=== PATIENT | male | born 1980 | race African-American/Black ===

== ENCOUNTER 2021-03-18 22:24 | Emergency (ER) | payer OTHER, SELFPAY ==
[2021-03-18 22:30] VITALS: BP 148/82; PULSE 100; RESP 20; TEMP 37.1; O2SAT 98
--- NOTE | 2021-03-19 00:31 | PC.NURSE ---
EDMD presented to bedside.
--- NOTE | 2021-03-19 00:33 | PC.NURSE ---
Pt presents to ED with complaint of puss, swelling and itching of his scalp after dying his hair yesterday. Pt states he has never had an allergic reaction to hair dye and has also never used that brand of dye. Pt states his scalp is burning and itching. Denies pain, nausea, emesis, fever, chills, chest pain and sob. pt resting comfortably on cart in its lowest position with call button and personal items within reach. Vitals are stable and pt in no obvious distress at this time.
--- NOTE | 2021-03-19 00:35 | ED.ALLEREA ---
HPI - Allergic Reaction General Chief complaint: Skin/Abscess/Foreign Body Stated complaint: allergic reaction to hair dye Time Seen by Provider: 03/19/21 00:18 Source: patient Mode of arrival: ambulatory Limitations: no limitations History of Present Illness HPI narrative: Patient is a 42-year-old male complaining of itchy rash on his head after getting his hair dyed yesterday. Patient denies any facial, lip, tongue or throat swelling. Denies any shortness of breath. Related Data Home Medications Medication Instructions Recorded Confirmed amlodipine 09/07/19 lisinopril 09/07/19 Allergies Allergy/AdvReac Type Severity Reaction Status Date / Time No Known Allergies Allergy Verified 03/18/21 22:33 Review of Systems Review of Systems: All systems reviewed & are unremarkable except as noted in HPI and below Constitutional: Constitutional: Denies body ache(s), Denies chills, Denies excessive sweating, Denies fatigue, Denies fever(s), Denies headache(s), Denies lethargy, Denies malaise, Denies weakness and Denies weight loss Eyes: Eyes: Denies blurry vision, Denies change in vision and Denies loss of vision ENT: Denies dizziness, Denies ear discharge, Denies headache(s), Denies lip swelling, Denies epistaxis, Denies nasal congestion, Denies neck pain, Denies throat swelling and Denies tongue swelling Cardiovascular: Cardiovascular: Denies chest pain, Denies chest pain at rest, Denies chest pain with activity, Denies diaphoresis, Denies rapid heart rate, Denies edema, Denies irregular heart rhythm, Denies lightheadedness, Denies palpitations, Denies dyspnea and Denies dyspnea on exertion Respiratory: Respiratory: Denies chest congestion, Denies cough, Denies hemoptysis, Denies dyspnea and Denies dyspnea on exertion Gastrointestinal: Gastrointestinal: Denies abdominal pain, Denies melena, Denies hematochezia, Denies diarrhea, Denies nausea, Denies vomiting and Denies hematemesis Musculoskeletal: Musculoskeletal: Denies abnormal gait, Denies deformity, Denies joint swelling, Denies limited range of motion, Denies neck pain and Denies numbness Neurologic: Denies Abnormal speech present, Denies abnormal gait, Denies confusion, Denies dizziness, Denies headache(s), Denies focal weakness, Denies loss of vision, Denies numbness, Denies Other visual disturbances, Denies Sensory deficit (Neuro) and Denies weakness Psychiatric: Psychiatric: Denies confusion, Denies depression, Denies auditory hallucinations, Denies homicidal ideation and Denies suicidal ideation Endocrine: Endocrine: Denies cold intolerance, Denies excessive sweating, Denies fatigue, Denies heat intolerance and Denies palpitations Hematologic/Lymphatic: Hematologic/Lymphatic: Denies easy bleeding and Denies easy bruising Allergic/Immunologic: Allergic/Immunologic: Denies lip swelling, Denies throat swelling and Denies tongue swelling PMFSH Surgical History Surgical History History of hip replacement Social History Social History Smoking status: Never smoker Alcohol intake: current Substance use: never Comments Past medical history: None Social history: Non-smoker, occasional EtOH use, no drug use Exam Const: General: cooperative, comfortable, no acute distress, well developed, alert and awake; No confusion Orientation/consciousness: oriented to person, oriented to place, oriented to time, patient oriented x3 and No confusion Limitations: no limitations HENMT: Head: atraumatic Ears: hearing grossly normal bilaterally, TM normal on the right and TM normal on the left General nose exam: Normal external nose present, Normal nares present and No nasal discharge present Face and sinus: normal facial exam Mouth: Yes Normal oral and palatal mucosa present, Yes lip normal, Yes tongue normal and Yes oropharynx normal Throat: posterior oropharynx
[2021-03-19 00:36] VITALS: BP 136/87; PULSE 94; RESP 20; TEMP 37; O2SAT 100
[2021-03-19] MEDS: FAMOTIDINE 20 MG TABLET 40 MG PO (00:40)
[2021-03-19] MEDS: predniSONE 20 MG TABLET 60 MG PO (00:40)
[2021-03-19 00:44] VITALS: BP 136/87; PULSE 92; RESP 18; TEMP 37; O2SAT 100
[2021-03-19 00:45] VITALS: BP 127/82; PULSE 95; RESP 18; TEMP 37; O2SAT 98
== END 2021-03-19 00:48 | disposition home or self-care (01) ==
PROVIDERS: Emergency Provider Emergency Medicine
DX: L23.4 Allergic contact dermatitis due to dyes (principal)
CPT/HCPCS: 99283; A9270; J7512

== ENCOUNTER 2021-03-25 12:57 | Emergency (ER) | payer OTHER, SELFPAY ==
[2021-03-25 13:04] VITALS: BP 146/85; PULSE 92; RESP 20; TEMP 36.6; O2SAT 100
--- NOTE | 2021-03-25 13:13 | ED.SKABFB ---
HPI - Skin/Abscess/Foreign Bdy General Chief complaint: Skin/Abscess/Foreign Body Stated complaint: Allergic reaction Time Seen by Provider: 03/25/21 13:13 Source: patient and RN notes reviewed Mode of arrival: ambulatory Limitations: no limitations History of Present Illness HPI narrative: 41-year-old male presents to the [facility] with complaints of a rash to his scalp and side of face. States he developed a rash 4 days ago when he used some hair dye. States it is really itchy. Denies any treatment prior to arrival. States it remains very itchy. Related Data Home Medications Medication Instructions Recorded Confirmed amlodipine 1 mg PO DAILY 03/25/21 03/25/21 aspirin 1 mg PO DAILY 03/25/21 03/25/21 hydrochlorothiazide 1 mg PO DAILY 03/25/21 03/25/21 lisinopril 1 mg PO DAILY 03/25/21 03/25/21 Allergies Allergy/AdvReac Type Severity Reaction Status Date / Time No Known Allergies Allergy Verified 03/25/21 13:11 Review of Systems Review of Systems: All systems reviewed & are unremarkable except as noted in HPI and below Constitutional: Constitutional: Reports no additional constitutional complaints, Denies chills and Denies fever(s) Eyes: Eyes: Reports no additional eye complaints and Denies change in vision ENT: Reports system reviewed and no additional complaints, except as documented Cardiovascular: Cardiovascular: Reports no additional cardiovascular complaints, Denies chest pain and Denies radiating jaw, neck or arm pain Respiratory: Respiratory: Reports no additional respiratory complaints, Denies cough and Denies dyspnea Musculoskeletal: Musculoskeletal: Reports no additional musculoskeletal complaints Integumentary/Breasts: Skin/Breast: Reports as per HPI and Reports rash (Red raised itchy rash to the scalp and side of face) Neurologic: Reports system reviewed and no additional complaints, except as documented Psychiatric: Psychiatric: Reports no additional psychiatric complaints Allergic/Immunologic: Allergic/Immunologic: Reports as per HPI, Denies lip swelling, Denies throat swelling, Denies tongue swelling and Denies wheezing PMFSH Surgical History Surgical History History of hip replacement Social History Social History Smoking status: Never smoker Alcohol intake: current Substance use: never Gender identity (if verbalized by the patient): Male Comments At the time of my signature, I reviewed and agree with the nursing past medical, surgical, social, and family history. There is no relevant family history pertinent to the patient complaint. Exam Const: General: healthy appearing, no acute distress and alert Nutritional Appearance: obese Orientation/consciousness: patient oriented x3 HENMT: Head: normal to inspection Ears: external ears normal, TM's normal bilaterally and EAC's normal Eyes: Conjunctivae: conjunctivae normal Pupils: Equal, round and reactive pupils present Neck: Neck: normal visual inspection, no lymphadenopathy and no meningeal signs Chest: Chest palpation & inspection: normal inspection of the chest Resp: Effort & Inspection: normal respiratory effort and no use of accessory muscles Auscultation: clear to auscultation bilaterally, no crackles, no rales, no rhonchi and no wheezes Cardio: Rate: regular rate Rhythm: regular rhythm Back/Spine/Pelvis: Back: no CVA tenderness Skin: Rashes: rashes noted (Scalp and side of face) Neuro: General: patient oriented x3, moves all extremities, no meningeal signs and no focal motor deficits Speech: normal speech Gait exam (Neuro): Normal gait present Extrem: General: normal to inspection and no pedal edema Psych: Appearance: grossly normal Mental Status: mental status grossly normal Affect: normal affect Attitude: cooperative Thought content: Yes Normal thought content present Course Course Cindy
== END 2021-03-25 13:24 | disposition home or self-care (01) ==
PROVIDERS: Emergency Provider Nurse Practitioner; PCP Family Medicine
DX: L25.9 Unspecified contact dermatitis, unspecified cause (principal); I10 Essential (primary) hypertension
CPT/HCPCS: 99213; G0463

== ENCOUNTER 2022-01-20 06:55 | Emergency (ER) | payer OTHER, SELFPAY ==
[2022-01-20 07:03] VITALS: BP 153/90; PULSE 84; RESP 14; TEMP 36.4; O2SAT 100
--- NOTE | 2022-01-20 07:37 | ED.GENADULT ---
HPI - General Adult General Chief complaint: Skin/Abscess/Foreign Body Stated complaint: ALL RX TO HAIR DYE Time Seen by Provider: 01/20/22 07:22 Source: patient Mode of arrival: ambulatory Limitations: no limitations History of Present Illness HPI narrative: 41-year-old male presenting to the emergency department for evaluation of a suspected allergic reaction to a new hair dye that he used yesterday. Patient states that he dyed his hair yesterday morning and when he woke up this morning he noticed he had scalp swelling and right ear swelling. Patient denies any difficulty breathing swallowing or any facial swelling. Patient has never had this allergic reaction before. Patient denies any other complaints at this time. Related Data Home Medications Medication Instructions Recorded Confirmed amlodipine 1 mg PO DAILY 03/25/21 03/25/21 hydrochlorothiazide 1 mg PO DAILY 03/25/21 03/25/21 lisinopril 1 mg PO DAILY 03/25/21 03/25/21 Allergies Allergy/AdvReac Type Severity Reaction Status Date / Time No Known Allergies Allergy Verified 01/20/22 07:07 Review of Systems Review of Systems: CONSTITUTIONAL: Denies fever, chills, or sweats. EYES: Denies visual changes, redness, or discharge. ENT: Denies rhinorrhea, congestion, sore throat, or otalgia. CARDIOVASCULAR: Denies chest pain, palpitations, or edema. RESPIRATORY: Denies cough or dyspnea. GASTROINTESTINAL: Denies abdominal pain, nausea, vomiting, or diarrhea. GENITOURINARY: Denies dysuria or hematuria. SKIN: See HPI MUSCULOSKELETAL: Denies back pain, joint pain, or myalgia. [facility] Surgical History Surgical History History of hip replacement Social History Social History Smoking status: Never smoker Alcohol intake: current Substance use: never Gender identity (if verbalized by the patient): Male Exam Narrative: APPEARANCE: Well appearing, no pain, no distress, well-nourished. HEAD: normocephalic, atraumatic. EYES: PERRLA/EOMI, conjunctivae clear. NOSE: Normal no drainage EARS: External swelling of the right ear. THROAT: Pharynx clear, no exudate. NECK: Supple. No adenopathy, no masses. RESPIRATORY: Airway patent, respirations nonlabored. Clear to auscultation bilaterally, no rales, rhonchi, wheezing. CARDIOVASCULAR: Regular rate and rhythm without murmurs rubs or gallops. SKIN: Mild scalp and right ear edema. Some scaling of the scalp PSYCHIATRIC: Normal affect/mood. Course Course Emergency Course: Patient is being treated with Benadryl and prednisone in the emergency department and will be discharged with prednisone. Vital Signs Vital signs: Vital Signs Temperature 97.5 F L 01/20/22 07:03 Pulse Rate 84 01/20/22 07:03 Respiratory Rate 14 01/20/22 07:03 Blood Pressure 153/90 H 01/20/22 07:03 Pulse Oximetry 100 01/20/22 07:03 Temperature 97.5 F L 01/20/22 07:03 Pulse Rate 95 01/20/22 08:21 Respiratory Rate 17 01/20/22 08:21 Blood Pressure 144/102 H 01/20/22 08:21 Pulse Oximetry 100 01/20/22 08:21 Medical Decision Making Vital Signs Vital Signs: Vital Signs Temperature 97.5 F L 01/20/22 07:03 Pulse Rate 84 01/20/22 07:03 Respiratory Rate 14 01/20/22 07:03 Blood Pressure 153/90 H 01/20/22 07:03 Pulse Oximetry 100 01/20/22 07:03 Temperature 97.5 F L 01/20/22 07:03 Pulse Rate 95 01/20/22 08:21 Respiratory Rate 17 01/20/22 08:21 Blood Pressure 144/102 H 01/20/22 08:21 Pulse Oximetry 100 01/20/22 08:21 Discharge Plan Discharge Clinical Impression: Contact dermatitis Qualifiers: Contact dermatitis type: unspecified Contact dermatitis trigger: dye Qualified Code(s): L25.2 - Unspecified contact dermatitis due to dyes Patient Disposition: Home, Self-Care Condition: Stable Instructions: Antibiotic Form, Contact Dermatitis (ED) Additional Instructions: Predn
[2022-01-20] MEDS: predniSONE 20 MG TABLET 40 MG PO (07:46)
[2022-01-20] MEDS: diphenhydrAMINE HCl CAP 25 MG CAPSULE PO (07:46)
[2022-01-20 08:21] VITALS: BP 144/102; PULSE 95; RESP 17; O2SAT 100
== END 2022-01-20 08:20 | disposition home or self-care (01) ==
LOC: ANHED 07:59
PROVIDERS: Emergency Provider Emergency Medicine; PCP Family Medicine
DX: L25.2 Unspecified contact dermatitis due to dyes (principal); Z96.649 Presence of unspecified artificial hip joint
CPT/HCPCS: 99283; A9270; J7512

== ENCOUNTER 2022-02-02 07:36 | Emergency (ER) | payer OTHER, SELFPAY ==
[2022-02-02 07:40] VITALS: BP 143/89; PULSE 92; RESP 16; TEMP 36.6; O2SAT 100
--- NOTE | 2022-02-02 09:03 | PC.NURSE ---
EDP at bedside to assess patient.
--- NOTE | 2022-02-02 09:03 | ED.SKABFB ---
HPI - Skin/Abscess/Foreign Bdy General Chief complaint: Skin/Abscess/Foreign Body Stated complaint: contact dermatitis Time Seen by Provider: 02/02/22 08:53 History of Present Illness HPI narrative: Patient is a 41-year-old male here for evaluation of an pruritic rash on his bilateral hands x 2 weeks. Patient states he was seen here for the same on his scalp about 2 weeks ago, and was treated for contact dermatitis with a short course of prednisone and Zyrtec. He has been taking Zyrtec and finished prednisone about a week ago, but he states the rash on his hands came back afterwards. He denies any trouble breathing, cough, facial swelling. States he frequently has allergic reactions to a hair dye, and he used a new hair dye about 2 weeks ago. Related Data Home Medications Medication Instructions Recorded Confirmed amlodipine 1 mg PO DAILY 03/25/21 03/25/21 hydrochlorothiazide 1 mg PO DAILY 03/25/21 03/25/21 lisinopril 1 mg PO DAILY 03/25/21 03/25/21 Allergies Allergy/AdvReac Type Severity Reaction Status Date / Time No Known Allergies Allergy Verified 01/20/22 07:07 Review of Systems Review of Systems: CONSTITUTIONAL: Denies fever, chills, or sweats. EYES: Denies visual changes, redness, or discharge. ENT: Denies rhinorrhea, congestion, sore throat, or otalgia. CARDIOVASCULAR: Denies chest pain, palpitations, or edema. RESPIRATORY: Denies cough or dyspnea. GASTROINTESTINAL: Denies abdominal pain, nausea, vomiting, or diarrhea. GENITOURINARY: Denies dysuria or hematuria. SKIN: Reports itching. MUSCULOSKELETAL: Denies back pain, joint pain, or myalgia. NEUROLOGIC: Denies headache, numbness, or weakness. PSYCHIATRIC: Denies anxiety or depression. All systems reviewed & are unremarkable except as noted in HPI and below PMFSH Surgical History Surgical History History of hip replacement Social History Social History Smoking status: Never smoker Alcohol intake: current Substance use: never Gender identity (if verbalized by the patient): Male Exam Narrative: Gen: Alert, oriented, no acute distress Eyes: EOMI, no icterus Pulm: Lungs clear to auscultation. Respirations even and unlabored, symmetric thorax expansion, no audible stridor or visible cyanosis CV: Regular rate, no murmurs GI: No distension, no voluntary/involuntary guarding Neuro: AOx4, moves all extremities without apparent difficulty or weakness, follows commands Skin: Patient has several papules to bilateral hands with underlying excoriation. No jaundice, no visible bruising Psych: Normal mood/affect, insight/judgement good, adequate fund of knowledge, recent/remote memory intact Course Vital Signs Vital signs: Vital Signs Temperature 97.8 F 02/02/22 07:40 Pulse Rate 92 02/02/22 07:40 Respiratory Rate 16 02/02/22 07:40 Blood Pressure 143/89 H 02/02/22 07:40 Pulse Oximetry 100 02/02/22 07:40 Temperature 97.8 F 02/02/22 07:40 Pulse Rate 92 02/02/22 07:40 Respiratory Rate 16 02/02/22 07:40 Blood Pressure 143/89 H 02/02/22 07:40 Pulse Oximetry 100 02/02/22 07:40 MDM - Skin/Abscess/Foreign Bdy MDM Narrative Medical decision making narrative: 41-year-old male with 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 Previously improved with short course of steroids. Patient nontoxic-appearing with normal vital signs and no difficulty breathing. History and exam findings not consistent with dangerous etiologies of rash such as SJS/TEN, or secondary dangerous causes such as petechial rashes from thrombocytopenia or rickettsial infections. Rash does not appear urticarial with no signs of anaphylaxis either. Feel outpatient management is appropriate with short course of steroids, will switch to hydroxyzine instead of Benadryl for itching take at nighttime.
== END 2022-02-02 09:19 | disposition home or self-care (01) ==
PROVIDERS: Emergency Provider Emergency Medicine; PCP Family Medicine
DX: L25.2 Unspecified contact dermatitis due to dyes (principal); Z96.649 Presence of unspecified artificial hip joint
CPT/HCPCS: 99283

== ENCOUNTER 2023-01-29 07:23 | Emergency (ER) | payer OTHER, SELFPAY ==
--- NOTE | ~2023-01-29 | XR_ITS ---
EXAMINATION: XR chest 2V 01/29/2023 08:13 INDICATION: Cough and congestion PROCEDURE: 2 view chest COMPARISON: No prior studies for comparison. FINDINGS: The lungs are clear. The cardiomediastinal silhouette is within normal limits. There are no pleural effusions. There is no pneumothorax suspected. There is a calcified granuloma left lower thorax. No acute osseous abnormality. IMPRESSION: 1: NO ACUTE CARDIOPULMONARY DISEASE. Reviewed, dictated and finalized at location L.
[2023-01-29 07:40] VITALS: BP 150/103; PULSE 98; RESP 18; TEMP 36.8; O2SAT 99
[2023-01-29 07:50] VITALS: PULSE 104; RESP 20
[2023-01-29] MEDS: IPRATROPIUM BR 0.02% INH SOLN 0.5 MG/2.5 ML VIAL INHALATION (07:50)
[2023-01-29] MEDS: LEVALBUTEROL NEB 1.25 MG/3 ML INHALATION (07:50)
[2023-01-29 08:03] VITALS: PULSE 98; RESP 20
[2023-01-29 08:51] VITALS: PULSE 97; RESP 20
[2023-01-29] MEDS: predniSONE 20 MG TABLET 60 MG PO (09:25)
[2023-01-29 10:02] VITALS: PULSE 101; RESP 20
--- NOTE | 2023-01-29 10:40 | ED.GENADULT ---
HPI - General Adult General Chief complaint: Upper Respiratory Infection Stated complaint: congestion Time Seen by Provider: 01/29/23 07:34 History of Present Illness HPI narrative: Patient is a 42-year-old male who presents ER with cough and chest congestion. Reports he has had sinus congestion with sore throat and cough for the last week but has noticed increased congestion in his chest for the last couple days. No chest pain or chest pressure. Cough is productive. No fevers or chills or sweats. No known sick contacts. Related Data Home Medications Medication Instructions Recorded Confirmed amlodipine 10 mg tablet 1 mg PO DAILY 03/25/21 03/25/21 hydrochlorothiazide 25 mg tablet 1 mg PO DAILY 03/25/21 03/25/21 lisinopril 40 mg tablet 1 mg PO DAILY 03/25/21 03/25/21 Allergies Allergy/AdvReac Type Severity Reaction Status Date / Time No Known Allergies Allergy Verified 01/20/22 07:07 Review of Systems Review of Systems: All systems reviewed & are unremarkable except as noted in HPI and below Constitutional: Constitutional: Denies chills and Denies fever(s) ENT: Reports nasal congestion and Reports sore throat Cardiovascular: Cardiovascular: Denies chest pain and Denies radiating jaw, neck or arm pain Respiratory: Respiratory: Reports chest congestion, Reports cough, Reports dyspnea and Reports wheezing Gastrointestinal: Gastrointestinal: Denies nausea and Denies vomiting PMF Past Medical History Medical History (Updated 01/29/23 @ 18:38 by Pawel Hills MD) Healthy adult male Surgical History Surgical History History of hip replacement Social History Social History Smoking status: Never smoker Alcohol intake: current Substance use: never Living arrangements: with family Gender identity (if verbalized by the patient): Male Exam Narrative: GENERAL: Well-appearing, well-nourished, and in no acute distress. HEAD: Normocephalic, atraumatic. ENT: Mucous membranes moist. CHEST: Coarse Rales and wheezing bilaterally. No respiratory distress. HEART: Regular rate and rhythm. Normal peripheral pulses. ABDOMEN: Soft, nontender, nondistended. EXTREMITIES: Normal range of motion. No edema. SKIN: Warm, dry, no rash. NEURO: Alert and oriented x3. PSYCH: Normal mood and affect. Course Course Emergency Course: Patient resting comfortably. Informed of results. Lungs markedly improved after hour-long nebulizer treatment. Will be started on daily prednisone. Discharge home Vital Signs Vital signs: Vital Signs Temperature 98.2 F 01/29/23 07:40 Pulse Rate 98 01/29/23 07:40 Respiratory Rate 18 01/29/23 07:40 Blood Pressure 150/103 H 01/29/23 07:40 Pulse Oximetry 99 01/29/23 07:40 Oxygen Delivery Room Air 01/29/23 07:40 Temperature 98.2 F 01/29/23 07:40 Pulse Rate 92 01/29/23 11:08 Respiratory Rate 18 01/29/23 11:08 Blood Pressure 156/110 H 01/29/23 11:08 Pulse Oximetry 98 01/29/23 11:08 Oxygen Delivery Room Air 01/29/23 07:40 Medical Decision Making Vital Signs Vital Signs: Vital Signs Temperature 98.2 F 01/29/23 07:40 Pulse Rate 98 01/29/23 07:40 Respiratory Rate 18 01/29/23 07:40 Blood Pressure 150/103 H 01/29/23 07:40 Pulse Oximetry 99 01/29/23 07:40 Oxygen Delivery Room Air 01/29/23 07:40 Temperature 98.2 F 01/29/23 07:40 Pulse Rate 92 01/29/23 11:08 Respiratory Rate 18 01/29/23 11:08 Blood Pressure 156/110 H 01/29/23 11:08 Pulse Oximetry 98 01/29/23 11:08 Oxygen Delivery Room Air 01/29/23 07:40 Imaging Data Radiologist's impression: ITS Impressions Chest X-Ray 01/29/23 08:13 IMPRESSION: 1: NO ACUTE CARDIOPULMONARY DISEASE. Discharge Plan Discharge Clinical Impression: Bronchitis Patient Disposition: Home, Self-Car
[2023-01-29 11:08] VITALS: BP 156/110; PULSE 92; RESP 18; O2SAT 98
== END 2023-01-29 11:08 | disposition home or self-care (01) ==
PROVIDERS: Emergency Provider Emergency Medicine; PCP Family Medicine
DX: J40 Bronchitis, not specified as acute or chronic (principal)
CPT/HCPCS: 71046; 94640; 99284; J7512

== ENCOUNTER 2023-05-29 12:29 | Emergency (ER) | payer OTHER, SELFPAY ==
[2023-05-29 12:49] VITALS: BP 132/87; PULSE 90; RESP 16; TEMP 36.9; O2SAT 99
--- NOTE | 2023-05-29 13:02 | ED.EAR ---
HPI - Ear Problem General Chief complaint: Ear Stated complaint: right ear pain Time Seen by Provider: 05/29/23 13:02 Source: patient Mode of arrival: ambulatory Limitations: no limitations History of Present Illness HPI Narrative: 43 yo M presents with c/o R ear pain, ringing to R ear and decreased hearing starting last night. afebrile. No other symptoms. All systems reviewed and negative except as noted above. Related Data Home Medications Medication Instructions Recorded Confirmed amlodipine 10 mg tablet 1 mg PO DAILY 03/25/21 05/29/23 hydrochlorothiazide 25 mg tablet 25 mg PO DAILY 03/25/21 05/29/23 lisinopril 40 mg tablet 40 mg PO DAILY 03/25/21 05/29/23 liraglutide 0.6 mg/0.1 mL (18 mg/3 See Rx Instructions .Route .COMPLEX 05/29/23 05/29/23 mL) subcutaneous pen injector (Victoza 3-Kit) meloxicam 7.5 mg tablet 7.5 mg PO DAILY 05/29/23 05/29/23 Allergies Allergy/AdvReac Type Severity Reaction Status Date / Time No Known Allergies Allergy Verified 05/29/23 12:35 Review of Systems Review of Systems: CONSTITUTIONAL: Denies fever, chills, or sweats. EYES: Denies visual changes, redness, or discharge. ENT: Denies rhinorrhea, congestion, sore throat . Reports right ear pain. CARDIOVASCULAR: Denies chest pain, palpitations, or edema. RESPIRATORY: Denies cough or dyspnea. GASTROINTESTINAL: Denies abdominal pain, nausea, vomiting, or diarrhea. GENITOURINARY: Denies dysuria or hematuria. SKIN: Denies rash or itching. MUSCULOSKELETAL: Denies back pain, joint pain, or myalgia. NEUROLOGIC: Denies headache, numbness, or weakness. PSYCHIATRIC: Denies anxiety or depression. All other systems reviewed are negative, except as documented in HPI. [facility] Past Medical History Medical History (Updated 05/29/23 @ 13:07 by Honey Pemberton NP) Healthy adult male Surgical History Surgical History History of hip replacement Social History Social History Smoking status: Never smoker Alcohol intake: current Substance use: never Living arrangements: with family Gender identity (if verbalized by the patient): Male Comments At time of signature, agree with nursing past medical, surgical, social and family history. There is no relevant family history pertinent to the presenting complaint. Exam Narrative: GENERAL: This is a well-nourished, well-developed patient, in no apparent distress. HEAD: normocephalic, atraumatic. EYES: PERRL. Sclera clear/white. Vision is grossly intact. EARS: External ears normal,R ear canal erythematous and swollen, R TM erythematous and retracted. there is a purulent drainage covering half of TM. perforation possible. L TM and canal normal. NOSE: External nose normal NECK: Neck supple, non-tender without lymphadenopathy, masses or thyromegaly. CARDIOVASCULAR: Regular rate and rhythm without murmurs, gallops, or rubs. RESPIRATORY: Clear to auscultation. Breath sounds equal bilaterally. No wheezes, rales, or rhonchi. SKIN: warm, Dry, intact with no suspicious lesions or rash, good texture and turgor. NEURO: awake, alert, and oriented to person, place and time. There were no obvious focal neurologic abnormalities. EXTREMITIES: No joint tenderness, effusion, or edema noted. Course Course Level of Care: Express Care Visit Vital Signs Vital signs: Vital Signs Temperature 36.9 C 05/29/23 12:49 Pulse Rate 90 05/29/23 12:49 Respiratory Rate 16 05/29/23 12:49 Blood Pressure 132/87 05/29/23 12:49 Pulse Oximetry 99 05/29/23 12:49 Oxygen Delivery Room Air 05/29/23 12:49 Temperature 36.9 C 05/29/23 12:49 Pulse Rate 90 05/29/23 12:49 Respiratory Rate 16 05/29/23 12:49 Blood Pressure 132/87 05/29/23 12:49 Pulse Oximetry 99 05/29/23 12:49 Oxygen Delivery Room Air 05/29/23 12:49 Reviewed Medical
== END 2023-05-29 13:10 | disposition home or self-care (01) ==
PROVIDERS: Emergency Provider Nurse Practitioner Family; PCP Family Medicine
DX: H66.91 Otitis media, unspecified, right ear (principal); H60.501 Unspecified acute noninfective otitis externa, right ear
CPT/HCPCS: 99213; G0463

== ENCOUNTER 2023-06-13 15:56 | Emergency (ER) | payer OTHER, SELFPAY ==
[2023-06-13 16:08] VITALS: BP 138/81; PULSE 98; RESP 14; TEMP 37; O2SAT 98
--- NOTE | 2023-06-13 16:45 | ED.EAR ---
HPI - Ear Problem General Chief complaint: Ear Stated complaint: right ear pain Time Seen by Provider: 06/13/23 16:51 Source: patient, RN notes reviewed and old records reviewed Mode of arrival: ambulatory Limitations: no limitations History of Present Illness HPI Narrative: 43 year old male who presents to [facility] care with complaints of right ear pain for the past few days. Patient reports that he was seen in the clinic 2 weeks ago and took his medication and seemed to get better for a while then got worse. Patient states that his hearing is decreased to his right ear, denies any known fevers,no chills or sweats has taken some Ibuprofen for his discomfort. Patient reports no drainage from his ear. MD Complaint: ear pain and decreased hearing Location: right ear Duration: constant Severity: moderate Associated symptoms ear: decreased hearing and other (ear pain) Treatment prior to arrival: other (completed oral antibiotic) Related Data Home Medications Medication Instructions Recorded Confirmed amlodipine 10 mg tablet 1 mg PO DAILY 03/25/21 05/29/23 hydrochlorothiazide 25 mg tablet 25 mg PO DAILY 03/25/21 05/29/23 lisinopril 40 mg tablet 40 mg PO DAILY 03/25/21 05/29/23 liraglutide 0.6 mg/0.1 mL (18 mg/3 See Rx Instructions .Route .COMPLEX 05/29/23 05/29/23 mL) subcutaneous pen injector (Victoza 3-Kit) meloxicam 7.5 mg tablet 7.5 mg PO DAILY 05/29/23 05/29/23 Allergies Allergy/AdvReac Type Severity Reaction Status Date / Time No Known Allergies Allergy Verified 06/13/23 16:20 Review of Systems Review of Systems: CONSTITUTIONAL: Denies malaise, chills, sweats, or fever. EYES: Denies visual changes, redness, or discharge. ENT: Reports some rhinorrhea, congestion,no sinus pain, positive for right otalgia no sore throat. CARDIOVASCULAR: Denies chest pain, palpitations, or edema. RESPIRATORY: Reports no cough.? Denies dyspnea. GASTROINTESTINAL: Denies abdominal pain, nausea, vomiting, diarrhea SKIN: Denies rash or itching. MUSCULOSKELETAL: Denies myalgia. NEUROLOGIC: Denies headache. All systems reviewed & are unremarkable except as noted in HPI and below PMFSH Past Medical History Medical History Healthy adult male Hypertension Surgical History Surgical History (Updated 06/13/23 @ 17:24 by Mayuri Will NP) History of hip replacement S/P tendon repair right hand Social History Social History Smoking status: Former smoker Additional smoking assessment comments: quit 2007 Alcohol intake: current Substance use: never Living arrangements: with family Gender identity (if verbalized by the patient): Male Comments At time of signature, agree with nursing past medical, surgical, social and family history. There is no relevant family history pertinent to the presenting complaint Exam Narrative: GENERAL: Well-appearing, well-nourished, and in no acute distress. HEAD: Normocephalic EYES: PERRLA, conjunctivae clear ENT: Nares clear, turbinates edematous and erythematous, clear discharge. Mucous membranes moist. Using lighted curette black colored mucous material removed from right ear, TM red and canal is irritated Left TM pearly cuevas with dull light reflex bilaterally; no tragal tenderness. Oropharynx erythematous without lesions. Tonsils not enlarged and without exudate, no drooling, no hoarseness, no trismus, uvula midline. NECK: Supple. No lymphadenopathy CHEST: Clear to auscultation, breath sounds equal. No wheezing, rhonchi, rales, or stridor. No respiratory distress, speaks in full sentences.SAO2 98% on room air HEART: Regular rate and rhythm. No murmur heard. SKIN: Warm, dry, no rash. NEURO: Alert and oriented x3. PSYCH: Normal mood and affect Course Course Emergency Course: Patient is aware of diagnosis, understands and agrees
== END 2023-06-13 16:51 | disposition home or self-care (01) ==
PROVIDERS: Emergency Provider Registered Nurse; PCP Family Medicine
DX: H65.01 Acute serous otitis media, right ear (principal); H60.311 Diffuse otitis externa, right ear; I10 Essential (primary) hypertension; Z87.891 Personal history of nicotine dependence
CPT/HCPCS: 99213; G0463

== ENCOUNTER 2023-06-25 15:14 | Emergency (ER) | payer OTHER, SELFPAY ==
[2023-06-25 15:24] VITALS: BP 147/84; PULSE 101; RESP 16; TEMP 35.9; O2SAT 99
--- NOTE | 2023-06-25 15:38 | ED.EAR ---
HPI - Ear Problem General Chief complaint: Ear Stated complaint: Right Ear Irritation History of Present Illness HPI Narrative: Pt is a 43 y/o male, returns to with improved but not resolved, right otalgia after completing Augmentin and using Floxin otic (5 gtts) in the right ear canal twice daily for one week. He feels the ear is markedly better and is no longer draining but he continues to have muffled hearing and his canal is tender with palpating. He denies associated fevers, nasal congestion or rhinorrhea. He has no additional complaints. Related Data Home Medications Medication Instructions Recorded Confirmed amlodipine 10 mg tablet 1 mg PO DAILY 03/25/21 06/25/23 hydrochlorothiazide 25 mg tablet 25 mg PO DAILY 03/25/21 06/25/23 lisinopril 40 mg tablet 40 mg PO DAILY 03/25/21 06/25/23 liraglutide 0.6 mg/0.1 mL (18 mg/3 See Rx Instructions .Route .COMPLEX 05/29/23 06/25/23 mL) subcutaneous pen injector (Victoza 3-Kit) meloxicam 7.5 mg tablet 7.5 mg PO DAILY 05/29/23 06/25/23 Allergies Allergy/AdvReac Type Severity Reaction Status Date / Time No Known Allergies Allergy Verified 06/13/23 16:20 Review of Systems ENT: Reports system reviewed and no additional complaints, except as documented and Reports as per [facility] Past Medical History Medical History Healthy adult male Hypertension Surgical History Surgical History History of hip replacement S/P tendon repair right hand Social History Social History Smoking status: Former smoker Additional smoking assessment comments: quit 2008 Alcohol intake: current Substance use: never Living arrangements: with family Gender identity (if verbalized by the patient): Male Exam Const: General: healthy appearing, no acute distress and alert Nutritional Appearance: obese Orientation/consciousness: patient oriented x3 Limitations: no limitations Other: pt is very pleasant, conversant, in NAD HENMT: Head: normal to inspection Ears: external ears normal, Abnormal EAC present (left EAC is unremarkable. Right EAC is tender with exam, very mild swelling) and TM abnormal other (right TM has opaque effusion. TM is not erythematous. TM intact) Face/Nose/Sinus: Normal external nose present Other: the right EAC is not erythematous or significantly edematous. There is discomfort with manipulation of the auricle. No mastoid TTP, no fluctunce Eyes: Conjunctivae: conjunctivae normal Pupils: Equal, round and reactive pupils present EOM: EOMs intact bilaterally Neck: Neck: normal visual inspection, no lymphadenopathy and no meningeal signs Resp: Effort & Inspection: normal respiratory effort Auscultation: clear to auscultation bilaterally Cardio: Rate: regular rate Rhythm: regular rhythm Skin: General skin exam: normal color Rashes: no rashes Neuro: General: patient oriented x3 and moves all extremities Cranial nerves: Yes Nystagmus not present Speech: normal speech Gait exam (Neuro): Normal gait present Extrem: General: normal to inspection Course Course Emergency Course: Pt's TM appears consistent with resolving AOM, as well as, improvement is suggested within the right ear canal. Plan to extend Floxin otic gtts, increasing dosing to 10 gtts twice daily, extending for one additional week. OTC Zyrtec or Claritin encouraged, FU with ENT if symptoms do not completely resolve in one week. Pt is agreeable with plan. Level of Care: Express Care Visit (28238) Vital Signs Vital signs: Vital Signs Temperature 35.9 C L 06/25/23 15:24 Pulse Rate 101 H 06/25/23 15:24 Respiratory Rate 16 06/25/23 15:24 Blood Pressure 147/84 H 06/25/23 15:24 Pulse Oximetry 99 06/25/23 15:24 Oxygen Delivery Room Air 06/25/23 15:24 Temperature 35.9 C L 06/25/23 1
== END 2023-06-25 15:50 | disposition home or self-care (01) ==
PROVIDERS: Emergency Provider Nurse Practitioner Family; PCP Family Medicine
DX: H60.391 Other infective otitis externa, right ear (principal); I10 Essential (primary) hypertension; Z96.649 Presence of unspecified artificial hip joint; Z87.891 Personal history of nicotine dependence
CPT/HCPCS: 99213; G0463

== ENCOUNTER 2024-01-29 09:48 | Emergency (ER) | payer OTHER, SELFPAY ==
[2024-01-29 10:03] VITALS: BP 123/89; PULSE 86; RESP 18; TEMP 36.7; O2SAT 100
--- NOTE | 2024-01-29 10:15 | ED.SKABFB ---
HPI - Skin/Abscess/Foreign Bdy General Chief complaint: Skin/Abscess/Foreign Body Stated complaint: left side of face bump by ear Time Seen by Provider: 01/29/24 10:18 Source: patient and RN notes reviewed Mode of arrival: ambulatory Limitations: dementia History of Present Illness HPI narrative: 43-year-old male presents with concern of for swelling/nodules near his left ear that he noticed 3 days ago. He reports they feel tight, not necessarily tender. He denies general malaise, fever, aches, chills, sweats. He denies ear pain or drainage from the ear. He denies trouble swallowing. MD complaint: other (swelling) Related Data Home Medications Medication Instructions Recorded Confirmed amlodipine 10 mg tablet 1 mg PO DAILY 03/25/21 01/29/24 hydrochlorothiazide 25 mg tablet 25 mg PO DAILY 03/25/21 01/29/24 lisinopril 40 mg tablet 40 mg PO DAILY 03/25/21 01/29/24 liraglutide 0.6 mg/0.1 mL (18 mg/3 See Rx Instructions .Route .COMPLEX 05/29/23 01/29/24 mL) subcutaneous pen injector (Victoza 3-Kit) meloxicam 7.5 mg tablet 7.5 mg PO DAILY 05/29/23 01/29/24 fluticasone propionate 50 2 spray intranasal DIRECTED 01/29/24 01/29/24 mcg/actuation nasal spray,suspension pen needle, diabetic 31 gauge x 01/29/24 01/29/24 5/16 (TRUEplus Pen Needle) Allergies Allergy/AdvReac Type Severity Reaction Status Date / Time No Known Allergies Allergy Verified 01/29/24 09:51 Review of Systems Review of Systems: CONSTITUTIONAL: Denies malaise, chills, sweats, or fever. EYES: Denies redness, or discharge. ENT: Denies rhinorrhea, congestion, ear pain, drainage from the ear, sore throat, trouble swallowing. Reports swelling/nodules next to his left ear CARDIOVASCULAR: Denies chest pain, palpitations, or edema. RESPIRATORY: Denies cough or dyspnea. GASTROINTESTINAL: Denies abdominal pain, nausea, vomiting SKIN: Denies purulent drainage, vesicles, bullae, numbness, pain beyond proportion MUSCULOSKELETAL: Denies joint pain or myalgia. NEUROLOGIC: Denies headache. All systems reviewed & are unremarkable except as noted in HPI and below PMFSH Past Medical History Medical History Healthy adult male Hypertension Surgical History Surgical History History of hip replacement S/P tendon repair right hand Social History Social History Smoking status: Former smoker Additional smoking assessment comments: quit 2007 Alcohol intake: current Substance use: never Living arrangements: with family Gender identity (if verbalized by the patient): Male Comments At time of signature, agree with nursing past medical, surgical, social and family history. There is no relevant family history pertinent to the presenting complaint Exam Narrative: GENERAL: Well-appearing, well-nourished, and in no acute distress. HEAD: Normocephalic EYES: PERRLA, conjunctivae clear ENT: Nares clear. Mucous membranes moist. TM pearly cuevas with discharge light reflex bilaterally; no tragal tenderness. Oropharynx not erythematous without lesions. Tonsils not enlarged and without exudate, no drooling, no hoarseness, no trismus, uvula midline. NECK: Supple. No lymphadenopathy CHEST: Clear to auscultation, breath sounds equal. No wheezing, rhonchi, rales, or stridor. No respiratory distress, speaks in full sentences. HEART: Regular rate and rhythm. No murmur heard. SKIN: Warm, dry, no rash. NEURO: Alert and oriented x3. PSYCH: Normal mood and affect HENMT: Head images: 1. Firmness, edema, no erythema, warmth, tenderness Course Course Emergency Course: Patient is aware of diagnosis, understands and agrees to treatment plan. Anticipatory guidance given. Patient agrees to follow-up as directed and is aware of reasons to seek care at the emergency department. Po
== END 2024-01-29 10:35 | disposition home or self-care (01) ==
PROVIDERS: Emergency Provider Nurse Practitioner; PCP Family Medicine
DX: K11.20 Sialoadenitis, unspecified (principal); Z87.891 Personal history of nicotine dependence; I10 Essential (primary) hypertension
CPT/HCPCS: 99213; G0463

== ENCOUNTER 2024-07-10 05:09 | Emergency (ER) | payer OTHER, SELFPAY ==
[2024-07-10 05:13] VITALS: BP 136/88; PULSE 98; RESP 15; TEMP 36.4; O2SAT 99
--- NOTE | 2024-07-10 05:16 | ED.ALLEREA ---
HPI - Allergic Reaction General Chief complaint: Allergic Reaction Stated complaint: allergic reaction Time Seen by Provider: 07/10/24 05:13 History of Present Illness HPI narrative: Patient is a 44-year-old male who presents to the emergency department this morning complaining of an allergic reaction. Patient states that over before he went to bed he used a dash dye in an attempt to dye his dash black. Patient went to bed without any issues and when he woke up he noticed that the area where he uses the dye around his chain is swollen. Patient denies any tongue swelling, any internal throat swelling, any difficulty breathing or shortness of breath at this time. Reaction is localized to changes skin area only. Patient believes that he did have a reaction to hair dye in the past but he states that it was mild and he can not recall exactly what the reaction was. Patient states that the dye was a different brand and he did not think that he could be allergic to this 1 as it was a different from the previous one. No additional symptoms or concerns at this time. Related Data Home Medications Medication Instructions Recorded Confirmed amlodipine 10 mg tablet 1 mg PO DAILY 03/25/21 01/29/24 hydrochlorothiazide 25 mg tablet 25 mg PO DAILY 03/25/21 01/29/24 lisinopril 40 mg tablet 40 mg PO DAILY 03/25/21 01/29/24 liraglutide 0.6 mg/0.1 mL (18 mg/3 See Rx Instructions .Route .COMPLEX 05/29/23 01/29/24 mL) subcutaneous pen injector (Victoza 3-Kit) meloxicam 7.5 mg tablet 7.5 mg PO DAILY 05/29/23 01/29/24 fluticasone propionate 50 2 spray intranasal DIRECTED 01/29/24 01/29/24 mcg/actuation nasal spray,suspension pen needle, diabetic 31 gauge x 01/29/24 01/29/24 5/16 (TRUEplus Pen Needle) Allergies Allergy/AdvReac Type Severity Reaction Status Date / Time No Known Allergies Allergy Verified 07/10/24 05:17 Review of Systems Review of Systems: All systems are reviewed and are negative unless stated otherwise in the HPI. [facility] Past Medical History Medical History Healthy adult male Hypertension Surgical History Surgical History History of hip replacement S/P tendon repair right hand Social History Social History Smoking status: Former smoker Additional smoking assessment comments: quit 2008 Alcohol intake: current Substance use: never Living arrangements: with family Gender identity (if verbalized by the patient): Male Exam Narrative: General: Alert, awake, afebrile, in no acute distress. HEENT: PERRL, no rhinorrhea, no post nasal drip, oropharynx clear. Neck: Trachea midline, no JVD, no lymphadenopathy. Cardiovascular: Regular rate and rhythm, no murmurs, rubs or gallops, no peripheral edema. Respiratory: Clear to auscultation bilaterally, no tachypnea, no wheezing, no rhonchi, no rubs, no respiratory distress. Abdomen: Soft, nontender, nondistended, no rebound, no guarding, no peritoneal signs. Musculoskeletal: No joint swelling or deformity, normal muscle tone. Skin: Localized skin induration to the chin area with mild edema and erythema. Psychiatric: Alert and oriented, normal behavior and judgment for situation. Neurological: Alert and oriented to person, place, and time. Follows all commands. No focal deficits, speech is clear and fluent. Course Vital Signs Vital signs: Vital Signs Temperature 97.6 F 07/10/24 05:13 Pulse Rate 98 07/10/24 05:13 Respiratory Rate 15 07/10/24 05:13 Blood Pressure 136/88 07/10/24 05:13 Pulse Oximetry 99 07/10/24 05:13 Oxygen Delivery Room Air 07/10/24 05:13 Temperature 97.6 F 07/10/24 05:13 Pulse Rate 98 07/10/24 05:13 Respiratory Rate 15 07/10/24 05:13 Blood Pressure 136/88 07/10/24 05:13 Pulse Oximetry 99 07/10/24 05:13 Oxygen D
[2024-07-10] MEDS: FAMOTIDINE 20 MG/2 ML VIAL IV PUSH (05:20)
[2024-07-10] MEDS: methylPREDNISolone SOD SUCC 125 MG VIAL IV PUSH (05:20)
[2024-07-10] MEDS: diphenhydrAMINE HCl INJ 50 MG/ML VIAL IV PUSH (05:20)
[2024-07-10 06:21] VITALS: BP 136/86; PULSE 88; RESP 15; O2SAT 100
== END 2024-07-10 06:22 | disposition home or self-care (01) ==
PROVIDERS: Emergency Provider Emergency Medicine; PCP Family Medicine
DX: L23.4 Allergic contact dermatitis due to dyes (principal); I10 Essential (primary) hypertension; Z96.649 Presence of unspecified artificial hip joint; Z87.891 Personal history of nicotine dependence
CPT/HCPCS: 96374; 96375; 99284; J1200; J2919